=== PATIENT | female | born 1990 | race Caucasian/White ===

== ENCOUNTER 2025-06-17 13:55 | Outpatient (AMB) | payer OTHER, SELFPAY ==
--- OUTSIDE RECORDS SUMMARY | 2025-05-28 11:01 | XMS_ITS | Encounter Summary ---
Author Organization [facility] Address [address] [place] [address] Care Team Providers Care Registry Rn Name Role Phone Pcp, No Primary Care Provider Unavailabl e Encounter Details Date Type Department Care Team (Late st Contact Info) Description 05/28/2025 11:01 AM EDT Hospital Encounter [facility] [address] [place] [phone] Nando Mack MD [address], [place] [id number] Social History Tobacco Use Types Packs/Day Years Used Date Smoking Tobacco: Never Assessed Comments Unknown Sex and Gender Information Value Date Recorded Sex Assigned at Not on file Legal Sex Female 1:08 PM EDT Gender Identity Not on file Sexual Orientation Not on file documented as of this encounter Plan of Treatment Not on file documented as of this encounter Procedures Procedure Name Priority Date/Time Associated Diagnosis Comments XR FINGER (3RD) 2+ VIEWS-RIGHT STAT 05/28/2025 11:30 AM EDT Finger injury, left, initial encounter documented in this encounter Results * XR Finger (3rd) 2+ views-Right (05/28/2025 11:30 AM EDT) Anatomical Region Laterality Modality Hand Right Computed Radiogr aphy 05/28/2025 11:3 8 AM EDT Impressions 05/28/2025 11:41 AM EDT Minimally displaced fracture involving the tuft of the distal third phalanx, as described. Soft tissue edema and laceration. Narrative 05/28/2025 11:41 AM EDT EXAM: XR FINGER (3RD) 2+ VIEWS-RIGHT on 05/28/2025 11:01 AM CLINICAL HISTORY: DOI 05/27/2025. Dropped a dumbbell on distal tip of right middle finger.. COMPARISONS: None TECHNIQUE: An AP radiograph of the right hand and lateral and oblique radiographs of the right third digit (middle finger) are obtained. FINDINGS: 3 views of the third digit of the right hand were obtained. The distal radius and ulna are intact. The carpal bones, metacarpals and most phalanges are intact. There is a distal tuft fracture of the distal phalanx of the third finger with minimal displacement. No radiopaque foreign bodies are seen. No subcutaneous gas noted. Possible soft tissue swelling in the distal third finger with apparent laceration. No periosteal reaction is seen. No periarticular erosions. Procedure Note Lukas Mcdaniels MD - 05/28/2025 EXAM: XR FINGER (3RD) 2+ VIEWS-RIGHT on 05/28/2025 11:01 AM CLINICAL HISTORY: DOI 05/27/2025. Dropped a dumbbell on distal tip of right middle finger.. COMPARISONS: None TECHNIQUE: An AP radiograph of the right hand and lateral and obliqueradiographs of the right third digit (middle finger) are obtained. FINDINGS: 3 views of the third digit of the right hand were obtained. The distalradius and ulna are intact. The carpal bones, metacarpals and mostphalanges are intact. There is a distal tuft fracture of the distalphalanx of the third finger with minimal displacement. No radiopaque foreign bodies are seen. No subcutaneous gasnoted. Possible soft tissue swelling in the distal third finger withapparent laceration. No periosteal reaction is seen. No periarticularerosions. IMPRESSION: Minimally displaced fracture involving the tuft of the distal thirdphalanx, as described. Soft tissue edema and laceration. us Gail Odom APRN IMG DIAGNOSTIC IMAGING ORDERA BLES Final Result documented in this encounter Visit Diagnoses Not on filedocumented in this encounter Care Teams Registry Rn Relationship Specialty Start Date End Date Pcp, No PCP - General General Medicine 05/28/25 documented as of this encounter
--- NOTE | 2025-06-17 13:57 | MHC.OFFVIS ---
Vital Signs 06/17/25 14:20 Height 5 ft 7 in Weight 180 lb BMI 28.2 Intake Visit Reasons: MACHINE HAND-Closed fx of tuft distal phalanx 3rd finger Intake Note: Hermila is a 35 year old right hand dominant female who presents today for a fracture care visit for a Right middle finger laceration and open fracture. DOI: 05/28/25. While working out she dropped a dumbbell on her right middle finger. She is about 20 weeks . Wound was irrigated but no repair was required at the urgent care. She was not placed on ABX at the urgent care. Patient reports that her finger is feeling much better, but she is concerns about her nail falling off. Allergies No Known Allergies Allergy (Verified 06/17/25 14:21) HPI HPI MACHINE HAND-Closed fx of tuft distal phalanx 3rd finger: Details: Hermila is a 35 year old right hand dominant woman who presents for an open right middle finger fracture, after dropping a dumbbell on her finger, DOI: 05/28/25. She was seen at urgent care where this was irrigated but not repaired. She denies being placed on Abx. She says she is doing better and her finger is less painful. She is concerned about her nail damage and says it looks like it is going to fall off. She is 20 weeks . Review of Systems Const All systems reviewed & are unremarkable except as noted in HPI and below Physical Exam Vital Signs: BMI result Body Mass Index 28.2 Const General: cooperative, healthy appearing and no acute distress Orientation/consciousness: patient oriented x3 HEENT Head: Yes normocephalic and Yes atraumatic Eyes EOM: EOMs intact bilaterally Resp Effort & Inspection: normal respiratory effort and able to speak in complete sentences Cardio Jugular venous distension: no JVD Skin General skin exam: turgor normal Rashes: no rashes Neuro General: patient oriented x3 Extrem Other: Evaluation of Right Upper Extremity: The patient is alert, oriented, and in no acute distress Neuro: Median, Ulnar, Radial nerves motor and sensory intact and sensation is normal to the tips of all digits Vascular: Cap refill brisk ROM: She can make a fist and extend all her digits General: No Ecchymosis. No Erythema or evidence of infection. Some nail equatorial guinean on her middle fingernail Dried blood at hyponychium and ulnar side of nail Patient reports her nail feels loose, but couldn't demonstrate it today in clinic Radiographs: 3 views of the right hand from 05/28/25 were reviewed by me today in clinic. They show a middle finger open distal phalanx tuft fracture Psych Appearance: grossly normal Affect: normal affect Attitude: cooperative Assessment & Plan Assessment & Plan (1) Open fracture of distal phalanx of right middle finger: Code(s): S62.632B - Displaced fracture of distal phalanx of right middle finger, initial encounter for open fracture Category: Medical Plan Assessment & Plan: 1. Right middle finger distal phalanx tuft fracture, open DOI: 05/28/25 First seen here in clinic: 06/17/25 Had not been placed on antibiotics, but patient says her finger is definitely feeling better not worse. Of note, she is currently 20 weeks . I educated her about this condition I discussed operative and non-operative treatment options No surgical intervention indicated at this time I explained the signs and symptoms of infection, if the patient develops any new or worsening erythema, drainage, pain, or warmth they should contact the clinic or attend the ED. I discussed activity modifications, she is to lift nothing heavier than a cellphone for the next 3 weeks. They should also avoid any heavy impact activities, falls, or sports activities for the next 5 weeks She will perform gentle ROM exercises at home She should avoid any underwater activities for the next 5 days She will follow up prn Scribed for Marie Jerez MD by Anastacio Titus, biomedical engineering internship, on 06/17/25 at 2:25 PM, EST. Orders: Orders XR hand RT min 3V Today M79.641 - Pain in right hand Coding Level of Care Code New Pt Level 3 (96036) Diagnoses Open fracture of distal phalanx of right middle finger S62.632B
[2025-06-17 14:20] VITALS: BMI 28.2
--- OUTSIDE RECORDS SUMMARY | 2025-06-17 16:27 | XMS_ITS | Clinical Summary ---
Author Organization [facility] Address [address] [place] [address] Care Team Providers Care Land Classifier Name Role Phone Pcp, No Primary Care Provider Unavailabl e Allergies No known active allergies Medications predniSONE (DELTASONE) 5 MG tablet Take 5 mg by mouth. 01/12/2025 Active vitamin with iron and folic acid ( PLUS) 27-1 MG Tab Take 1 tablet by mouth daily. Active Hospital, Clinic, or Other Facility Administered Medication Ordered Dose Route Frequency Start Date End Date Status ibuprofen (MOTRIN) tablet 800 mgIndications:Finger injury, left, initial encounter 800 mg PO Once 05/28/2025 05/28/2025 Ended Active Problems No known active problems Encounters Date Type Department Care Team Description 05/28/2025 11:01 AM EDT Hospital Encounter [facility] [address] [place] [phone] Nando Mack MD 05/28/2025 10:55 AM EDT Office Visit [facility] [address] [phone] Nando Mack MD Devitt, Anna C, APRN Closed fracture of tuft of distal phalanx of finger (Primary Dx); Finger injury, left, initial encounter; Laceration of right middle finger without foreign body without damage to nail, initial encounter; Subungual hematoma of digit of hand, initial encounter 05/28/2025 Scanned Document [address] [place] [phone] Provider, Generic 05/28/2025 Travel from Last 3 Months Social History Tobacco Use Types Packs/Day Years Used Date Smoking Tobacco: Never Assessed Comments Unknown Sex and Gender Information Value Date Recorded Sex Assigned at Not on file Legal Sex Female 1:08 PM EDT Gender Identity Not on file Sexual Orientation Not on file Last Filed Vital Signs Vital Sign Reading Time Taken Comments Blood Pressure 119/79 05/28/2025 10:49 AM EDT Pulse 65 05/28/2025 10:49 AM EDT Temperature 36.6 C (97.9 F) 05/28/2025 10:49 AM EDT Respiratory Rate - - Oxygen Saturation 100% 05/28/2025 10:49 AM EDT Inhaled Oxygen Concentration - - Weight 81.6 kg (180 lb) 05/28/2025 10:49 AM EDT Height 170.2 cm (5' 7 ) 05/28/2025 10:49 AM EDT Body Mass Index 28.19 05/28/2025 10:49 AM EDT Plan of Treatment Health Maintenance Due Date Last Done Comments Hepatitis C Virus Screening 1990 HIV Screening 2003 DTaP/Tdap/Td Vaccines (1 - Tdap) 2009 Hepatitis B Vaccines (1 of 3 - 19+ 3-dose series) 2009 Pap Smear (Ages 21-65) 2011 HPV Vaccines (1 - 3-dose SCDM series) 2017 Influenza Vaccine 04/24/2025 07/16/2020, , 07/10/2018, Additional history exists COVID-19 Vaccine ( - season) 2025 Pneumococcal Vaccine: Pediatric (0-5 Years) and At-Risk Patients (6 to 49 Years) Aged Out No longer eligible based on patient's age to complete this topic Procedures Procedure Name Priority Date/Time Associated Diagnosis Comments INCISION AND DRAINAGE Routine 05/28/2025 11:52 AM EDT Subungual hematoma of digit of hand, initial encounter XR FINGER (3RD) 2+ VIEWS-RIGHT STAT 05/28/2025 11:30 AM EDT Finger injury, left, initial encounter from Last 3 Months Results * INCISION AND DRAINAGE (05/28/2025 11:52 AM EDT) Narrative Gail Odom, CHILD CENTER ASSISTANT - 05/28/2025 11:52 AM EDT Gail Odom APRN 05/28/2025 11:57 AM Incision and drainage Date/Time: 05/28/2025 11:52 AM Performed by: Gail Odom APRN Authorized by: Gail Odom APRN Type: subungual hematoma Body area: upper extremity Location details: right long finger Sedation: Patient sedated: no Needle gauge: 18 Incision depth: subungual Complexity: simple Drainage: bloody Wound treatment: wound left open Patient tolerance: patient tolerated the procedure well with no immediate complications Gail Odom APRN PROCEDURE/MINOR SURGICAL ORDE RABLES Final Result * XR Finger (3rd) 2+ views-Right (05/28/2025 [...] as described. Soft tissue edema and laceration. Gail Odom CHILD CENTER ASSISTANT IMG DIAGNOSTIC IMAGING ORDERA BLES Final Result from Last 3 Months Insurance [facility] Care Teams Land Classifier Relationship Specialty Start Date End Date Pcp, No PCP - General General Medicine 05/28/25
--- OUTSIDE RECORDS SUMMARY | 2025-06-17 16:27 | XMS_ITS | Clinical Summary ---
Author Organization [facility] Address [id number] [place] [address] Phone Care Team Providers Care Nurse Reviewer Name Role Phone Rd Ly MD Primary Care Provider [phone] Allergies No known active allergies Medications predniSONE (DELTASONE) 5 MG tablet Take 1 tablet (5 mg total) by mouth daily with breakfast. 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 At this point I recommend: 1.HTN- continue prednisone for now, she is planning a fourth so would not change anything right now but will d/w endocrine if better to get her off of the prednisone to something else long-term 2. Aneurysm screening- MRI ordered for q5 years 3. Bone health-vitamin D 20, would take regularly, will confer with endocrine re: screening recommendations Hypertension due to endocrine disorder 5 Family History Medical History Relation Comments Hypertension Daughter Heart disease Maternal Grandfather Hypertension Maternal Grandfather Hypertension Mother Hypertension Son Relation Status Comments Daughter Maternal Grandfather Mother Son Social History Tobacco Use Types Packs/Day Years Used Date Smoking Tobacco: Never Smokeless Tobacco: Never Tobacco Cessation:Counseling Given: Not Answered Education Answer Date Recorded Are you interested in more education? Not on deepika e 04/10/2024 Are you concerned about learning? Not on file 04/10/2024 No 04/10/2024 No 04/10/2024 Digital Access Answer Date Recorded No 04/10/2024 No 04/10/2024 Reliable internet access at home? Not on file 04/10/2024 Device with a working camera? Not on file Comments Unknown Sex and Gender Information Value Date Recorded Sex Assigned at Female 04/10/2024 1:05 PM EDT Legal Sex Female 12:57 PM EDT Gender Identity Female 04/10/2024 1:05 PM EDT Sexual Orientation Straight 04/10/2024 1: 05 PM EDT Last Filed Vital Signs Vital Sign Reading Time Taken Comments Blood Pressure 110/68 10/29/2024 9:52 AM EST Pulse 66 10/29/2024 9:52 AM EST Temperature - - Respiratory Rate - - Oxygen Saturation 100% 10/29/2024 9:52 AM EST Inhaled Oxygen Concentration - - Weight 71.7 kg (158 lb) 11/28/2024 1:40 PM EST Height 170.2 cm (5' 7 ) 11/28/2024 1:40 PM EST Body Mass Index 24.75 11/28/2024 1:40 PM EST Plan of Treatment Health Maintenance Due Date Last Done Comments HIV ONE-TIME SCREENING (18-65 YEARS) 01/25/2008 PAP SMEAR 2011 INFLUENZA VACCINE (#1) 2025 BLOOD PRESSURE 04/28/2025 10/29/2024 COVID-19 VACCINE ( season) 2025 DEPRESSION SCREENING 10/22/2025 10/22/2024 Adult Td,Tdap Booster 05/02/2031 05/02/2021 , 10/27/2019, 03/19/2017, Additional history exists HEPATITIS C SCREENING Completed 02/20/2024 SMOKING STATUS SCREENING (Once After 26 Yrs) Completed 12/04/2024 HEPATITIS A VACCINES Aged Out No long er eligible based on patient's age to complete this topic HIB VACCINES Aged Out No longer eligi ble based on patient's age to complete this topic MENINGOCOCCAL VACCINES (ACWY) Aged Out No longer eligible based on patient's age to complete this topic MENINGOCOCCAL VACCINES (B) Aged Out N o longer eligible based on patient's age to complete this topic PNEUMOCOCCAL VACCINES (0-49 years) Aged Out No longer eligible based on patient's age to complete this topic Medical Devices Not on file Insurance Care Teams Nurse Reviewer Relationship Specialty Start Date End Date Rd Ly MD [address] [place] [address] PCP - General Internal Medicine 04/10/24 Additional Source Comments The information contained in this document represents components of the legal health record. It is not the complete legal health record.[facility]
--- OUTSIDE RECORDS SUMMARY | 2025-06-17 16:27 | XMS_ITS | Clinical Summary ---
Author Organization [facility] Address [address] [place] [id number] Care Team Providers Care Rn Corrections Name Role Phone Rd Ly MD Primary Care Provider [phone] Allergies No known active allergies Medications MV-Min-Fe Fum-FA-DHA ( 1 PO) Take by mouth Active Natacha 0.35 MG tablet 04/12/2023 Active Multiple Vitamin (MULTIVITAMIN ADULT PO) Take 1 tablet by mouth 02/20/2023 Active predniSONE 5 MG tablet TAKE ONE TABLET BY MOUTH EVERY DAY 30 tablet 08/09/2023 Active predniSONE 5 MG tablet Take 1 tablet (5 mg total) by mouth 1 (one) time each day 90 tablet 4 08/09/2023 Active Active Problems Problem Noted Date Diagnosed Date Hyperaldosteronism 06/05/2023 06/05/2023 Hypertension 08/24/2021 Routine general medical exam ination at a health care facility 07/31/2018 06/05/2023 Overview (06/05/2023): Last Assessment & Plan: Hermila is up-to-date with age-appropriate screenings and vaccinations except she chose not to have the COVID-19 vaccine. Overall she is in a good place with her health. Hyperlipidemia 11/24/2014 06/05/2023 Overview (06/05/2023): Last Assessment & Plan: Recommend lipid profile when she is done breast-feeding as it may not be very accurate. Glucocorticoid-remediable aldosteronism 02/15/20 10 06/05/2023 Overview (06/05/2023): Last Assessment & Plan: She has strong family history of this condition mom has it and now 2 children were diagnosed with it. She is followed by nephrology and takes 5 mg prednisone daily. Immunizations Immunization Administration Dates Next Due Influenza, Quadrivalent, Pre servative Free 07/16/2020,08/23/2017 Influenza, Quadrivalent, Wit h Preservative 07/10/2018 Influenza, Unspecified 06/24/2019 PPD Test 05/07/2012 Tdap 05/02/2021, 0,03/19/2017,2011 Social History Tobacco Use Types Packs/Day Years Used Date Smoking Tobacco: Never Smokeless Tobacco: Never Tobacco Cessation:Counseling Given: Not Answered Alcohol Use Standard Drinks/Week Comments Not Currently 0 (1 standard drink = 0.6 oz pur e alcohol) Comments Unknown Sex and Gender Information Value Date Recorded Sex Assigned at Not on file Legal Sex Female 5:09 PM EST Gender Identity Not on file Sexual Orientation Not on file Last Filed Vital Signs Vital Sign Reading Time Taken Comments Blood Pressure 112/76 06/06/2023 8:33 AM EDT Pulse 59 06/06/2023 8:33 AM EDT Temperature - - Respiratory Rate - - Oxygen Saturation 97% 06/06/2023 8:33 AM EDT Inhaled Oxygen Concentration - - Weight 80.1 kg (176 lb 9.6 oz) 06/06/2023 8:33 A M EDT Height 170.2 cm (5' 7 ) 08/22/2021 2:31 PM EST Body Mass Index 27.66 08/22/2021 2:31 PM EST Plan of Treatment Health Maintenance Due Date Last Done Comments Hepatitis B Vaccine (1 of 3 - 19+ 3-dose series) 2009 Pneumococcal Vaccine: Peds ( 0 to 5 Years) and At-Risk Patients (6 to 49 Years) (1 of 2 - PCV) 2009 Influenza Vaccine (#1) 2025 0, 06/24/2019, 07/10/2018, Additional history exists Insurance Care Teams Rn Corrections Relationship Specialty Start Date End Date Rd Ly MD [address] [place] [address] PCP - General Internal Medicine 08/22/21
--- OUTSIDE RECORDS SUMMARY | 2025-06-17 16:27 | XMS_ITS | Clinical Summary ---
Author Organization [facility] Address [address] [place] [address] Care Team Providers Care Etymology Teacher Name Role Phone Rd Ly MD Primary Care Provider [phone] Allergies No known active allergies Medications predniSONE (DELTASONE) 5 mg tablet TAKE ONE TABLET BY MOUTH EVERY DAY 90 tablet 3 05/03/2020 Active Active Problems Problem Noted Date Diagnosed Date Routine general medical exam ination at a health care facility 07/31/2018 Assessment & Plan (03/10/2025 10:42 AM EDT): Consider COVID-19 booster vaccine. Up-to-date with vaccinations. 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 Will obtain records. Overall she is doing great. Update labs. Depression screen: PHQ-2 0 (03/10/2025 10:03 AM) PHQ-9 0 (03/10/2025 10:03 AM) Interpretation: Based on today's screening test and additional history, I believe this patient Does not meet criteria for depression. No further evaluation needed at this time. Plan: Screen again in 1 year. Assessment & Plan (02/20/2024 10:58 AM EDT): She is interested in COVID-19 booster vaccine. She is seeing her display fabrication supervisor and up-to-date with Pap. All in all I find this patient to be in good health. Maintain a healthy weight, active lifestyle, green Mediterranean diet. Assessment & Plan (02/20/2023 12:06 PM EDT): She is not interested in COVID-19 vaccine or hepatitis B vaccine. She states she is up-to-date with Pap through her display fabrication supervisor office we will need to get copy. I will follow labs. All in all I find Hermila to be in good health and she has an active healthy lifestyle. Assessment & Plan (02/13/2022 1:32 PM EDT): Hermila is up-to-date with age-appropriate screenings and vaccinations except she chose not to have the COVID-19 vaccine. Overall she is in a good place with her health. Assessment & Plan (02/07/2021 1:54 PM EDT): She suffered from COVID-19 infection in August. Has chosen not to get the COVID-19 vaccine. Up-to-date with Pap through her display fabrication supervisor. Generally active healthy lifestyle. Assessment & Plan (07/31/2019 10:10 AM EST): Healthy woman with no concerning medical issues at this time. She is on a vitamin. She is drinking enough water. Tdap will be given to her by her display fabrication supervisor in the third trimester. She already had the glucose tolerance test. She is scheduled to have BMP by her loan teller. She will see me in a year. Will get lipid panel then. She already received a flu shot. Pap is up-to-date. Assessment & Plan (07/31/2018 10:44 AM EST): She is up-to-date with flu shot and tetanus vaccine. She had a Pap by her display fabrication supervisor and we will obtain the report. All in all this patient is doing quite well. Hyperlipidemia 11/24/2014 Assessment & Plan (03/10/2025 10:40 AM EDT): She lost weight since her last visit close expect improvement. Diet and exercise levels are pretty good. Assessment & Plan (02/20/2024 10:57 AM EDT): Update lipid profile. She has gained weight and realizes she needs to cut back on portions. Otherwise overall diet is well-balanced. Assessment & Plan (02/20/2023 12:05 PM EDT): Update lipid profile. Assessment & Plan (02/13/2022 1:32 PM EDT): Recommend lipid profile when she is done breast-feeding as it may not be very accurate. Assessment & Plan (02/07/2021 1:55 PM EDT): Cholesterol level is higher when last checked. We will update that today. Assessment & Plan (07/31/2019 10:10 AM EST): She has history of mild hypercholesterolemia. During this is not very accurate. We will hold off on the lipid panel this year. Assessment & Plan (07/31/2018 10:43 AM EST): LDL was slightly above goal in 2012 so I would like to update that. This can be done at the time of labs being drawn by her loan teller in January so I have put an order for postdated labs to be drawn at [facility] [place] lab. 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 Takes prednisone 5 mg daily. Blood pressure is excellent. Assessment & Plan (02/20/2024 10:58 AM EDT): She is followed by nephrology and takes prednisone 5 mg daily. Blood pressure is high normal. Although when she checks at the hospital it is always lower. She will follow-up with nephrology about this. Assessment & Plan (02/20/2023 12:05 PM EDT): Followed by nephrology. Takes prednisone 5 mg daily, stable disease. Assessment & Plan (02/13/2022 1:31 PM EDT): She has strong family history of this condition mom has it and now 2 children were diagnosed with it. She is followed by nephrology and takes 5 mg prednisone daily. Assessment & Plan (02/07/2021 1:54 PM EDT): She initially presented with elevated blood pressures and her teens. It took few years for her to get the diagnosis. Now followed by Dr. Busby. Initially seen by him in 2009. Has glucocorticoid remediable hyperaldosteronism. Well controlled on prednisone 5 mg daily. Assessment & Plan (07/31/2019 10:09 AM EST): Stable on low-dose prednisone 5 mg daily. No problems during her previous . Divinity Teacher did not change anything. He ordered a BMP which she will get done today Assessment & Plan (07/31/2018 10:44 AM EST): Followed closely by loan teller. Blood pressure looks great. She continues a low dose of prednisone and did not require any stress dosing during or delivery. Resolved Problems Problem Noted Date Diagnosed Date Resolved Date Sore throat 02/20/2024 03/10/2025 Assessment & Plan (02/20/2024 10:57 AM EDT): Most likely allergic in nature. To take antihistamine consistently for 2 weeks or more and keep going if there is relief. Other possibilities LPR. She can try a course of [id number] Prilosec 20 mg daily for 2 weeks and see if symptoms improve. Stepwise approach discussed with patient. She can consider seeing an mortgage professional locally. 11/27/2016 07/31/2018 Negative depression screening 03/02/2016 07/31/2018 Acute upper respiratory infection 08/23/2012 07/31/2018 Rhabdomyolysis 03/07/2012 07/31/2018 Immunizations Immunization Administration Dates Next Due Influenza Virus Vaccine, Uns pecified Formulation 06/24/2019 Influenza, Injectable, Quadr ivalent, Contains Preservative 07/10/2018 Influenza, Injectable, Quadr ivalent, Preservative Free 07/16/2020,08/23/2017 Influenza, Unspecified 06/24/2019 Tetanus Toxoid, Reduced Diph theria Toxoid, and Acellular Pertussis Vaccine, Adsorbed 05/02/2021,10/27/2019,03/19/2017,2011 Tuberculin Skin Test; Mariela ed Protein Derivative Solution, Intradermal 05/07/2012 Family History Medical History Relation Name Comments Other Brother Fraternal histo ry of Craniopharyngioma Other Daughter Primary hyperal dosteronism Other Father Paternal histor y of Benign Essential Hypertension /Paternal history of Diabetes Mellitus /Family History of hypercholesterolemia Other Maternal Grandfather Materna l grandfather's history of Coronary Artery Disease /Maternal grandfather's history of Sudden / Instantaneous Other Mother Maternal histor y of Acute Myocardial Infarction /Maternal history of Glucorticoid-remediable Aldosteronism Other Mother's Sister 1 Maternal a unt's history of Breast Cancer Other Mother's Sister 2 Maternal a unt's history of Breast Cancer Other Paternal Grandfather Paterna l grandfather's history of Colon Cancer Other Son Primary hyperal dosteronism Relation Name Status Comments Brother Daughter Alive Father Maternal Grandfather Mother Mother's Sister 1 Mother's Sister 2 Paternal Grandfather Son Other Social History Tobacco Use Types Packs/Day Years Used Date Smoking Tobacco: Never Smokeless Tobacco: Never Tobacco Cessation:Counseling Given: Not Answered Comments:: Alcohol Use Standard Drinks/Week Comments Not Currently 0 (1 standard drink = 0.6 oz pur e alcohol) 2XMTH [facility] Utilities Answer Date Recorded In the past 12 months has th e electric, gas, oil, or water company threatened to shut off services in your home? No 03/10/2025 Hunger Vital Sign Answer Date Recorded Within the past 12 months, y ou worried that your food would run out before you got the money to buy more. Never true 03/10/20 25 Within the past 12 months, t he food you bought just didn't last and you didn't have money to get more. Never true 03/10/2025 Transportation Answer Date Recorded In the past 12 months, has l ack of reliable transportation kept you from medical appointments, meetings, work or from getting things needed for daily living? No 03/10/2025 Housing Answer Date Recorded Housing Risk Low 2 03/10/2025 Housing Risk Medium Not on file 03/10/2025 Housing Risk High Not on file 03/10/2025 What is your living situation today? LSSTEADY 03/10/2025 Comments Unknown Sex and Gender Information Value Date Recorded Sex Assigned at Female 08/22/2020 7:52 AM EST Legal Sex Female 1:52 AM EDT Gender Identity Female 08/22/2020 7:52 AM EST Sexual Orientation Straight 08/22/2020 7: 52 AM EST Occupation Industry Job Start Date Job End Date RN Not on file Not on file Not on file Last Filed Vital Signs Vital Sign Reading Time Taken Comments Blood Pressure 102/72 03/10/2025 10:00 AM EDT Pulse 64 03/10/2025 10:00 AM EDT Temperature 36.1 C (97 F) 08/25/2020 12:59 PM EST Respiratory Rate - - Oxygen Saturation 59% 04/20/2011 1:54 PM EDT Inhaled Oxygen Concentration - - Weight 75.3 kg (166 lb) 03/10/2025 10:00 AM EDT Height 170.2 cm (5' 7 ) 03/10/2025 10:00 AM EDT Body Mass Index 26 03/10/2025 10:00 AM EDT Plan of Treatment Upcoming Encounters Date Type Department Care Team (Late st Contact Info) Description 03/15/2026 11:00 AM EDT Office Visit [facility] [address] [place] [phone] [address] Ly MD [address] [place] [phone] (Work) Health Maintenance Due Date Last Done Comments HPV and Pap Smear 06/02/2020 06/02/2015, , 12/11/2011, Additional history exists Cervical Cancer Screening 06/25/2022 Pap Smear 06/25/2022 06/25/2019, 090 05/2015, 03/07/2013, Additional history exists COVID-19 Vaccine ( season) 2025 Influenza Vaccine (#1) 2025 , 06/24/2019, 06/24/2019, Additional history exists Depression Screening and Follow-Up 03/10/2026 03/10/2025 Hepatitis B Vaccines (1 of 3 - 19+ 3-dose series) 03/10/2026 Postponed from 2009 (Patient Declined) [employer] Annual Screening 03/10/2026 03/10/2025 Diabetes Screening 02/19/2027 02/20/2024, 0 06/06/2023, 06/06/2023, Additional history exists DTaP,Tdap,and Td Vaccines (5 - Td or Tdap) 05/02/2031 05/02/2021, 10/27/2019, 03/19/2017, Additional history exists RSV Vaccine (60+ years old and patients) (1 - 1-dose 75+ series) 2065 HIV Screening Addressed 01/25/2021 Overridden wit h the intention of not completing the topic Hepatitis C Screening Completed 02/20/2024 Alcohol/Substance Use Screening Completed 03/10/2025 Pneumococcal Vaccine: Pediatric (0-5 Years) and At-Risk Patients (6-50 Years) Aged Out No longer eligible based on patient's age to complete this topic Varicella Vaccines Discontinued Procedures * Due to [place] Obvious[employer] law, this organization might not be sharing negative HIV tests. Procedure Name Priority Date/Time Associated Diagnosis Comments COMPREHENSIVE METABOLIC PANEL Routine 02/20/2024 11:07 AM EDT Routine general medical examination at a health care facility Glucocorticoid-remedi able aldosteronism HEPATITIS C ANTIBODY W/REFLEX TO HCV RNA, QUANTITATIVE PCR Routine 02/20/2024 11:07 AM EDT Routine general medical examination at a health care facility HM PAP SMEAR Routine 06/25/2019 [facility] PAP TEST W/REFLEX HPV, MRNA [id number] Routine 06/02/2015 12:00 AM EDT from Last 3 Months or Most Recently Relevant to Health Maintenance Results * Due to [place] [employer] law, this organization might not be sharing negative HIV tests. * Hepatitis C Antibody w/Reflex to PCR (02/20/2024 11:07 AM EDT) Hepatitis C Antibody NON-REACT JALYN NON-REACT JALYN 02/20/2024 6:11 PM EDT [facility] Comment: HCV antibody was non-reactive. There is no laboratory evidence of HCV infection. In most cases, no further action is required. However, if recent HCV exposure is suspected, a test for HCV RNA (test code 37075) is suggested. For additional information please refer to http://education.PriceSpot/faq/FWY41d5 (This link is being provided for informational/ educational purposes only.) Blood Structure of peripheral vein / Unknown 02/20/2024 11:07 AM EDT 02/20/2024 4:[address] Ly MD LAB BLOOD ORDERABLES Final Res ult [facility] [address] [facility] [address], [place] [address], [facility] [address] [place] [address] * Comprehensive Metabolic Panel (02/20/2024 11:07 AM EDT) Glucose 68 65 - 99 mg/dL 02/20/2024 7:06 PM EDT [facility] Comment: Fasting reference interval BUN 15 7 - 25 mg/dL 02/20/2024 7:06 PM EDT [facility] Creatinine 0.74 0.50 - 0.97 mg/dL 02/20/2024 7:06 PM EDT [facility] eGFR 109 > OR = 60 mL/min/1. 73m2 02/20/2024 7:06 PM EDT [facility] Bun/Creatinine Ratio SEE NOTE: 6 - 22 (calc) 02/20/2024 7:06 PM EDT [facility] Comment: Not Reported: BUN and Creatinine are within reference range. Sodium 137 135 - 146 mmol/L 02/20/2024 7:06 PM EDT [facility] Potassium 3.9 3.5 - 5.3 mmol/L 02/20/2024 7:06 PM EDT [facility] [place] [facility] Chloride 101 98 - 110 mmol/L 02/20/2024 7:06 PM EDT [facility] Carbon Dioxide 27 20 - 32 mmol/L 02/20/2024 7:06 PM EDT [facility] Calcium 9.6 8.6 - 10.2 mg/dL 02/20/2024 7:06 PM EDT [facility] Protein, Total 7.3 6.1 - 8.1 g/dL 02/20/2024 7:06 PM EDT [facility] Albumin 4.6 3.6 - 5.1 g/dL 02/20/2024 7:06 PM EDT [facility] Globulin 2.7 1.9 - 3.7 g/dL (calc) 02/20/2024 7:06 PM EDT [facility] Albumin/Globuli n Ratio 1.7 1.0 - 2.5 (calc) 02/20/2024 7:06 PM EDT [facility] Bilirubin, Total 0.6 0.2 - 1.2 mg/dL 02/20/2024 7:06 PM EDT [facility] Alkaline Phosphatase 53 31 - 125 U/L 02/20/2024 7:06 PM EDT [facility] AST 17 10 - 30 U/L 02/20/2024 7:06 PM EDT [facility] ALT 14 6 - 29 U/L 02/20/2024 7:06 PM EDT [facility] Blood Structure of peripheral vein / Unknown 02/20/2024 11:07 AM EDT 02/20/2024 4:[address] Ly MD LAB BLOOD ORDERABLES Final Res ult [facility] [address] [facility] [address], [place] [address], [place] [phone] [facility] [address] [place] [address] * HM Pap Smear (06/25/2019) us Unknown Provider HEALTH MAINTENANCE Final Res ult * [facility] Pap Test w/Reflex HPV, mRNA E6/E7 (06/02/2015 12:00 AM EDT) [facility] ThinPrep TIS PAP Reflex E6/E7 (See Below) [facility] Comment: TP TIS PAP RFX E6/E7 CLINICAL INFORMATION: vaccinated for HPV LMP: 05/03/15 PREV. PAP: NONE GIVEN PREV. BX: NONE GIVEN SOURCE: Cervix, Endocervix STATEMENT OF ADEQUACY: Satisfactory for evaluation. Endocervical/transformation zone component present. INTERPRETATION/RESULT: Negative for intraepithelial lesion or malignancy. COMMENT: This Pap test has been evaluated with computer assisted technology. SPECIAL EDUCATION MATH TEACHER: DORY TRINIDAD(ASCP) Report Comments: Received Date: [id number] Performing Site: [facility] [address] [address] Director: PATRICK OWENS 06/02/2015 12:0 0 AM EDT 06/02/2015 6:42 PM EDT Vidhi Hogan MD LAB [facility] ORDER SALO Final Result [place] [address] [facility],[address] FLO[address],[place] [address] from Last 3 Months or Most Recently Relevant to Health Maintenance Insurance [facility] Care Teams Etymology Teacher Relationship Specialty Start Date [place] [phone] (Work) PCP - General Internal Medicine 04/12/17
--- OUTSIDE RECORDS SUMMARY | 2025-06-17 16:27 | XMS_ITS | Encounter Summary ---
Author Organization [facility] Address [address] [facility] [address] [place] [address] Phone Care Team Providers Care Hand Washer Name Role Phone Rd Ly MD Primary Care Provider [phone] Reason for Visit * Reason Onset Date Comments Med Refill 05/30/2023 Encounter Details Date Type Department Care Team (Late st Contact Info) Description 05/30/2023 Refill [facility] [address] [facility] [address] [place] [phone] Dann Abdi MD [address] [place] [phone] Social History Tobacco Use Types Packs/Day Years Used Date Smoking Tobacco: Never Smokeless Tobacco: Never Alcohol Use Standard Drinks/Week Comments Not Currently [...] on file documented as of this encounter Visit Diagnoses Not on filedocumented in this encounter Care Teams Hand Washer Relationship Specialty Start Date [place] [address] PCP - General Internal Medicine 08/22/21 documented as of this encounter
--- OUTSIDE RECORDS SUMMARY | 2025-06-17 16:27 | XMS_ITS | Encounter Summary ---
Author Organization [facility] Address [address] [place] [phone] Phone Care Team Providers Care Area Manager Name Role Phone Rd Ly MD Primary Care Provider [phone] Encounter Details Date Type Department Care Team (Late st Contact Info) Description 10/29/2024 Procedure [facility] [address] [place] [address] Social History Tobacco Use Types Packs/Day Years Used Date Smoking Tobacco: Never Smokeless Tobacco: Never Education Answer Date Recorded Are you interested [...] Orientation Straight 04/10/2024 1: 05 PM EDT documented as of this encounter Plan of Treatment Not on file documented as of this encounter Visit Diagnoses Not on filedocumented in this encounter Care Teams Area Manager Relationship Specialty Start Date End Date Rd Ly MD [address] [employer] [place] [address] PCP - General Internal Medicine 04/10/24 documented as of this encounter Additional Source Comments The information contained in this document represents components of the legal health record. It is not the complete legal health record.[facility]
--- OUTSIDE RECORDS SUMMARY | 2025-06-17 16:27 | XMS_ITS | Encounter Summary ---
Author Organization [facility] Address [address] [place] [address] Care Team Providers Care Labview Programmer Name Role Phone Pcp, No Primary Care Provider Unavailabl e Encounter Details Date Type Department Care Team (Late st Contact Info) Description 05/28/2025 Scanned Document [address] [place] [phone] Provider, Generic Social History Tobacco Use Types Packs/Day Years [...] on filedocumented in this encounter Care Teams Labview Programmer Relationship Specialty Start Date End Date Pcp, No PCP - General General Medicine 05/28/25 documented as of this encounter
--- OUTSIDE RECORDS SUMMARY | 2025-06-17 16:27 | XMS_ITS | Encounter Summary ---
Author Organization [facility] Address [address] [place] [address] Phone Care Team Providers Care Joint Terminal Attack Controller Name Role Phone Rd Ly MD Primary Care Provider [phone] Reason for Visit * Reason Onset Date Comments Medication Refill 01/12/2025 Encounter Details Date Type Department Care Team (Late st Contact Info) Description 01/12/2025 Refill [facility] [address] [place] [address] Eleonora Mota MD [address] [place] [address] Endocrinology, Diabetes and Hypertension, [address] [address] [email or web address] Medication Refill Social History Tobacco Use Types Packs/Day Years [...] on filedocumented in this encounter Care Teams Joint Terminal Attack Controller Relationship Specialty Start Date End Date Rd Ly MD [address] [place] [phone] PCP - General Internal Medicine 04/10/24 documented as of this encounter Additional Source Comments The information contained in this document represents components of the legal health record. It is not the complete legal health record.[facility]
--- OUTSIDE RECORDS SUMMARY | 2025-06-17 16:27 | XMS_ITS ---
Author Name [facility] Organization Unknown History of Medication Use Medication Directions Dispensed Refills Start Date End Date Stat us ibuprofen (MOTRIN) tablet 800 mg 05/28/2025 05/28/2025 completed predniSONE (DELTASONE) 5 MG tablet Take 5 mg by mouth. 01/12/2025 active vitamin with iron and folic acid ( PLUS) 27-1 MG Tab Take 1 tablet by mouth daily. active Problems Problem Status Onset Date Problem Type Date of Resoluti on Source Closed fracture of tuft of distal phalanx of finger active EncounterDiagnosisAct [facility] Finger injury, left, initial encounter active EncounterDiagnosisAct [facility] Laceration of right middle finger without foreign body without damage to nail, initial encounter active EncounterDiagnosisAct [facility] Subungual hematoma of digit of hand, initial encounter active EncounterDiagnosisAct [facility] Encounters Encounter Type Encounter Reason Primary Diagnosis Location Date Ambulatory No[facility] 05/28/2025 Ambulatory Unspecified injury of left wrist, hand and finger(s), initial encounter Unspecified injury of left wrist, hand and finger(s), initial encounter [facility] 05/28/2025 Care Team Organization Name Specialty Phone Email Start Date End Da te [facility] PCP Annual Greenhouse Manager 05/28/2025 [facility] 05/28/2025 [facility] NO PCP Primary Care 05/28/2025
== END 2025-06-17 15:01 | disposition home or self-care (01) ==
LOC: HO.HOS 13:56
PROVIDERS: Visit Provider Orthopaedic Surgery
DX: S62.632B Displaced fracture of distal phalanx of right middle finger, initial encounter for open fracture (principal)
CPT/HCPCS: 99203

== ENCOUNTER 2025-06-17 13:55 | Outpatient (REF) | payer OTHER, SELFPAY | END 2025-06-17 13:56 | disposition home or self-care (01) | LOC: HO.HOSX 13:55 | PROVIDERS: Visit Provider Orthopaedic Surgery | DX: O9A.212 Injury, poisoning and certain other consequences of external causes complicating pregnancy, second trimester (principal); S62.632B Displaced fracture of distal phalanx of right middle finger, initial encounter for open fracture; Z3A.20 20 weeks gestation of pregnancy; W20.8XXA Other cause of strike by thrown, projected or falling object, initial encounter | CPT/HCPCS: 99202 ==